=== PATIENT | male | born 1950 | race Caucasian/White ===

== ENCOUNTER 2019-03-18 13:11 | Emergency (ER) | payer MEDICARE, BC, SELFPAY ==
[2019-03-18 13:28] VITALS: BP 131/79; PULSE 97; RESP 16; TEMP 36.9; O2SAT 96
--- NOTE | 2019-03-18 13:44 | W.ED.GENAD ---
Discharge Plan Disposition Patient Disposition: HOME Condition: Improving Discharge Details Chief Complaint: DentalOral Clinical Impression: Oral ulcer Primary Care Provider: None,None ED Provider: Jordin Tucker Home Meds and New Rx's Prescriptions: Continued ibuprofen 800 MG tablet 800 mg PO BID PRNQty: 30 RF: 0 diazepam 10 MG tablet 10 mg PO BID PRNQty: 60 RF: 2 allopurinol 300 MG tablet 300 mg PO DAILY Qty: 90 RF: 0 Discharge Instructions Additional Instructions: May use Magic mouthwash, swish and spit 5 cc up to 4 times daily. Use approximately 5 days time. Follow-up with regular doctor for recheck. Continue regular medications. Return for any acute concern Medical Decision Making 68-year-old male with shallow ulcerations that are fairly discrete and have been bothering him for 2 months times. HPI General Mode of arrival: ambulatory. Date/Time Provider Initiated Documentation: 03/18/19 13:35. Limitations to Documentation: no limitations. Information obtained by: patient. History of Present Illness 68 year old M presents to the emergency department with the chief complaint of Oral sores, described as mild, Quality is described as constant, and is localized to the mouth. Patient reports no radiation. and it has been constant. No relieving factors improve symptom(s), No exacerbating factors reported . Patient did receive the following treatments prior to arrival, none Related Data Home Medications Medication Instructions Recorded Confirmed diazepam 10 mg PO BID PRN #60 tab-cap 06/20/15 03/18/19 ibuprofen 800 mg PO BID PRN #30 tab-cap 06/20/15 03/18/19 allopurinol 300 mg PO DAILY #90 tab-cap 01/26/16 03/18/19 Allergies Allergy/AdvReac Type Severity Reaction Status Date / Time bupropion HCl Allergy Unknown Unverified 03/18/19 13:31 [From Wellbutrin] paroxetine HCl [From Paxil] Allergy Unknown Unverified 03/18/19 13:31 colchicine AdvReac Intermediate Diarrhea Unverified 03/18/19 13:31 morphine sulfate AdvReac CONSTIPATIO Unverified 03/18/19 13:31 [From MS Contin] N General Stated Complaint: DentalOral JAMIE: 3 Review of Systems Review of Systems No fever. No weight loss. Otherwise well. 6 systems reviewed and [facility] Social History Smoking/Tobacco Use Status: Current every day Tobacco Type: cigarettes Drug use: Never Substance use type: does not use Exam Narrative Exam Narrative: GEN: awake, alert, oriented 3. Pleasant, well groomed, interactive. HEAD: Normocephalic, atraumatic ENT: Mucous membranes moist, oropharynx with few shallow ulcerations on the floor of the mouth and right buccal mucosa, no swelling, no purulent discharge, no exudate, External ear exam unremarkable EYES: PERRL, EOMI NECK: Full ROM, no RENA, no menigismus CHEST/RESP: Nontender, clear to auscultation bilateral, no wheeze/rhonchi/rales CARDIOVASCULAR: RRR, no murmur, rub husam. 2+ Rad pulse bilateral EXT: Full ROM, no edema, no rash Neuro: Grossly normal neurologic exam, conversant, interactive. Psych: Speech fluent, thoughts congruent, affect normal Course Vital Signs Temperature 36.9 C 03/18/19 13:28 Pulse 97 H 03/18/19 13:28 Respiratory Rate 16 03/18/19 13:28 Blood Pressure 131/79 03/18/19 13:28 Pulse Oximetry 96 03/18/19 13:28 Temperature 36.9 C 03/18/19 13:28 Temperature Source Skin 03/18/19 13:28 Pulse 97 H 03/18/19 13:28 Respiratory Rate 16 03/18/19 13:28 Respiratory Effort Non-Labored 03/18/19 13:28 Blood Pressure 131/79 03/18/19 13:28 Blood Pressure Position Sitting 03/18/19 13:28 Pulse Oximetry 96 03/18/19 13:28 Oxygen Delivery Method Room Air 03/18/19 13:28 Oxygen Flow Rate 0 03/18/19 13:28 Pain Level 6 03/18/19 13:28
[2019-03-18] MEDS: Magic Mouthwash 119 ML BTL PO (14:00)
== END 2019-03-18 14:12 | disposition home or self-care (01) ==
PROVIDERS: Emergency Provider Emergency Medicine
DX: K12.1 Other forms of stomatitis (principal)
CPT/HCPCS: 99283

== ENCOUNTER 2019-04-24 12:22 | Outpatient (REF) | payer MEDICARE, BC, SELFPAY ==
[2019-04-24 19:13] LABS: ALT 40 U/L (12-78); AST 22 U/L (15-37); Albumin 3.7 g/dL (3.4-5.0); Alkaline Phosphatase 102 U/L (46-116); Anion Gap 7.8 mmol/L (3-11); BUN 6 mg/dL (7-18); Bilirubin, Total 0.5 mg/dL (0.2-1.0); CO2 29.2 mmol/L (21.0-32.0); CREATININE 0.82 mg/dL (0.70-1.30); Calcium 9.3 mg/dL (8.5-10.1); Chloride 103 mmol/L (98-107); Glucose 101 mg/dL (70-100); Potassium 4.7 mmol/L (3.5-5.1); Sodium 140 mmol/L (136-145); Total Protein 7.4 g/dL (6.4-8.2)
[2019-04-24 19:53] LABS: Calculated LDL 127 mg/dL; Cholesterol 195 mg/dL (50-200); HDL Cholesterol 51 mg/dL (40-60); Triglyceride 89 mg/dL (30-150)
== END 2019-04-24 12:42 ==
LOC: LBN 12:22
PROVIDERS: PCP Family Medicine; Visit Provider Family Medicine
DX: Z13.6 Encounter for screening for cardiovascular disorders (principal)
CPT/HCPCS: 80053; 80061; 83721

== ENCOUNTER 2019-08-06 12:56 | Observation (INO) | payer MEDICARE, BC, SELFPAY ==
[2019-08-06 13:03] VITALS: BP 134/83; PULSE 100; RESP 16; TEMP 37; O2SAT 98
--- NOTE | 2019-08-06 13:23 | W.ED.GENAD ---
Discharge Plan Disposition Patient Disposition: [facility] INPATIENT Condition: Stable Discharge Details Chief Complaint: PsychEval Clinical Impression: Depressive disorder Primary Care Provider: Flaco Gerber ED Provider: Kenji Abdul Home Meds and New Rx's Prescriptions: No Action desvenlafaxine 100 mg tablet extended release 24hr 100 mg PO DAILY RF: 0 omeprazole 20 mg capsule,delayed release(DR/EC) 20 mg PO DAILY Qty: 30 RF: 2 Complete Multivitamin Tablet 1 tab PO DAILY RF: 0 bupropion HCl 150 mg tablet extended release 24 hr 150 mg PO QAM Qty: 30 RF: 0 diazepam 10 mg tablet 10 mg PO BID MDD 20 mg PRN (Reason: anxiety) Qty: 56 RF: 0 Medical Decision Making 68 yo male with hx of ptsd and depression comes in with worsening depression over the last few months. Denies any attempts at self harm and has no thoughts of si/hi, but does state if he didn't wake up that it be okay. Does drink alcohol, denies drug use and clinically sober on exam. Has no headaches, fevers, chills, chest pain, sob. Has normal neuro exam, caox4. No findings on history or physical exam to suggest underlying medical process such as infection or endocrine abnormality as cause of his symptoms. Medically cleared to see mental health pt seen by mental health and will be voluntary psych bed placement, labs unremarkable, remains stable no beds today, spoke with Dr. Lazo who accepts for admission Differential Diagnosis Differential Diagnosis: depression, si, bipolar Lab Data Lab results reviewed: Yes I reviewed the patient's lab results. HPI General Mode of arrival: ambulatory. Date/Time Provider Initiated Documentation: 08/06/19 12:57. Limitations to Documentation: no limitations. Information obtained by: patient. History of Present Illness 68 year old M presents to the emergency department with the chief complaint of depression, described as moderate, and it has been constant. No relieving factors improve symptom(s), No exacerbating factors reported . Related Data Home Medications Medication Instructions Recorded Confirmed desvenlafaxine 100 mg 100 mg PO DAILY 04/24/19 08/06/19 tablet,extended release 24 hour omeprazole 20 mg capsule,delayed 20 mg PO DAILY #30 cap 04/24/19 08/06/19 release multivitamin,au-dbco-jqbtevje 1 tab PO DAILY 05/22/19 08/06/19 bupropion HCl 150 mg 24 hr tablet, 150 mg PO QAM #30 tab 07/30/19 08/06/19 extended release diazepam 10 mg tablet 10 mg PO BID PRN #56 tab-cap MDD 07/30/19 08/06/19 20 mg Previous Rx's Medication Instructions Recorded omeprazole 20 mg capsule,delayed 20 mg PO DAILY #30 cap 04/24/19 release bupropion HCl 150 mg 24 hr tablet, 150 mg PO QAM #30 tab 07/30/19 extended release diazepam 10 mg tablet 10 mg PO BID PRN #56 tab-cap MDD 07/30/19 20 mg Allergies Allergy/AdvReac Type Severity Reaction Status Date / Time colchicine AdvReac Intermediate Diarrhea Verified 08/06/19 13:08 morphine sulfate AdvReac CONSTIPATIO Verified 08/06/19 13:08 [From MS Contin] N General Stated Complaint: PsychEval JAMIE: 2 Review of Systems All systems reviewed & are unremarkable except as noted in HPI and below Constitutional Constitutional: Denies chills, Denies fever(s) and Denies weakness ENT Ears, Nose, Mouth, and Throat: Denies change in voice Cardiovascular Cardiovascular: Denies chest pain and Denies dyspnea Respiratory Respiratory: Denies cough and Denies dyspnea Gastrointestinal Gastrointestinal: Denies abdominal pain, Denies nausea and Denies vomiting Musculoskeletal Musculoskeletal: Denies joint swelling Neurologic Neurologic: Denies weakness [facility] Medical History (Updated 05/21/19 @ 15:23 by Diane Berry RN) Alcohol abuse, in remission (Acute 01/06/15) Depressive disorder (Acute 09/16/05) Dr Sigala since 2004; now in [place], venlofexin rx Dysphonia (Acute 10/26/13) Generalized anxiety disorder (Acute 02/12/13) Panic too GERD with esophagitis (Acute) Gout (Acute 06/16/04) h/o multiple attacks, rx with allopurinol 2004 [facility] Grief at loss of child (Acute 01/06/15) Dtr of cancer 10/2014 Hyperlipidemia (Acute 02/12/13) Malignant neoplasm of respiratory tract (Acute 10/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 Sigala; SS Disability 10/2014; Crisis 06/09/14 [place] Sleep apnea (Acute 02/12/13) Tobacco dependence syndrome (Acute 02/12/13) Surgical History (Updated 05/22/19 @ 16:39 by Clementine Patel) History of circumcision (Acute) History of orchiectomy (Acute) 12/17/07 S/P ORIF (open reduction internal fixation) fracture (Acute) femur fx 10/17/03 S/P vasectomy (Acute) Family History (Updated 05/21/19 @ 15:16 by Diane Berry RN) Brother Anxiety Daughter Lymphoma Mother , age 64 Depression Heart disease Brother Alcohol abuse 4 brothers w/ alcoholism 3 brothers of accidents Social History (Updated 07/30/19 @ 13:18 by Edel Munroe LPN) Smoking/Tobacco Use Status: Current every day Tobacco Type: cigarettes Alcohol Intake: current Alcohol Intake frequency: 3 or more drinks per day Alcohol type: beer Details: 2 Drug use: Rarely Substance use type: marijuana Details: No IV Drug Use Adopted: No Caregiver/Support person: No Foster care: No Household members: none Housing: other Details: Rent Number of Children: 1 Communication Needs: None Do you need help understanding health information?: Never current occupation: Retired Sexually active: Yes Do you think of yourself as: straight/heterosexual Current gender identity: male What type of physical activity do you participate in: none Seatbelt use: always Exam Const General: no acute distress Orientation: alert HENMT Head: normal to inspection Ears: external ears normal General nose exam: external nose normal Mouth: moist mucous membranes Eyes General: appearance normal, both eyes and all related structures Neck Neck: normal visual inspection Resp Effort & Inspection: normal respiratory effort and able to speak in complete sentences Cardio Rate: regular rate Skin General skin exam: no rashes or lesions noted Neuro General: alert and oriented x3 Extrem General: normal to inspection Psych Appearance: well kempt Course Vital Signs Vital signs: Vital Signs Temperature 37 C 08/06/19 13:03 Pulse 100 H 08/06/19 13:03 Respiratory Rate 16 08/06/19 13:03 Blood Pressure 134/83 08/06/19 13:03 Pulse Oximetry 98 08/06/19 13:03 Temperature 37 C 08/06/19 13:03 Temperature Source Skin 08/06/19 13:03 Pulse 100 H 08/06/19 13:03 Respiratory Rate 16 08/06/19 13:03 Respiratory Effort Non-Labored 08/06/19 13:15 Blood Pressure 134/83 08/06/19 13:03 Blood Pressure Position Sitting 08/06/19 13:03 Pulse Oximetry 98 08/06/19 13:03 Oxygen Delivery Method Room Air 08/06/19 13:03 Oxygen Flow Rate 0 08/06/19 13:03 Pain Level 8 08/06/19 13:03 Comment 08/06/19 13:03
[2019-08-06 13:34] LABS: Abs Immature Grans 0.01 k/cumm (0.0-0.09); Absolute Basophil Count 0.01 k/cumm (0.0-0.2); Absolute Eosinophil Count 0.07 k/cumm (0.0-0.7); Absolute Lymphocyte Count 1.09 k/cumm (1.2-3.4); Absolute Monocyte Count 0.73 k/cumm (0.11-0.7); Absolute Neutrophil Count 6.63 k/cumm (1.2-6.7); Basophils % 0.1; Eosinophils % 0.8; HGB 15.8 g/dL (13.5-17.5); Immature Grans % 0.1; Lymphocytes % 12.8; Mean Corp. HGB Concentration 35.9 g/dL (32.0-36.0); Mean Corpuscular Hemoglobin 32.5 pg (27.0-33.0); Mean Corpuscular Volume 90.5 fL (80-95); Mean Platelet Volume 9.3 fL (8.0-11.0); Monocytes % 8.5; Neutrophils % 77.7; Platelet Count 198 x1000/uL (130-400); RBC 4.86 m/cumm (4.50-6.00); RBC Distribution Width 12.4 % (11.8-14.1); White Blood Cell Count 8.54 k/cumm (4.4-10.8)
--- NOTE | 2019-08-06 13:38 | NUR.NOTE ---
Nursing Note: mental worker in room at this time
[2019-08-06 13:56] LABS: ALT 38 U/L (16-63); AST 22 U/L (15-37); Albumin 3.8 g/dL (3.4-5.0); Alkaline Phosphatase 74 U/L (46-116); Anion Gap 9.8 mmol/L (3-11); BUN 7 mg/dL (7-18); Bilirubin, Total 0.3 mg/dL (0.2-1.0); CO2 26.2 mmol/L (21.0-32.0); CREATININE 0.76 mg/dL (0.70-1.30); Calcium 9.5 mg/dL (8.5-10.1); Chloride 101 mmol/L (98-107); ETHANOL BLOOD 9.8 mg/dL (<3); Glucose 79 mg/dL (74-106); Sodium 137 mmol/L (136-145); TSH (W/Ref FT4) 1.46 uIU/mL (0.36-3.74); Total Protein 7.7 g/dL (6.4-8.2)
--- NOTE | 2019-08-06 14:14 | PDOC.MHCN_ITS ---
Mental Health Crisis Note Presenting Issue How did you arrive at the ED and why did you come: You came to ED because he was suffering from severe depression. Precipitating Factors You has active SI with no intent but he is shutting down enough where he has no energy to prepare meals and often goes without eating. He staying in bed continually. He has become extremely socially isolated. The clt has suffered many personal loses his mother and three brother. One of his brother shot himself in the head. Four years ago his daughter of cancer. The daughter did give to his only grandchild before she passed on. The clt said he almost lost his son to drug abuse who is now in rehab. The clt feels that he should be there for him and feels guilt that he can't given his present condition. A therapist in [place] recommended ECT. I strongly feel the clt's dep ression warrants inpatient. 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 The clt has severe secondary PTSD along with the severe depression. Disposition BEHAVIOR: Cooperative EYE CONTACT: Eye contact was good. MOOD: Somber and eyes were tearful. AFFECT: Sad and dejected APPETITE: barely eats SLEEP(trouble falling/staying asleep: excessive sleep Plan The plan is to have you go to an inpatient unit as a voluntary pt. The receptive for treatment and currently feels his present medications are not helping.
[2019-08-06 14:57] LABS: Salicylate 5.6 mg/dL (2.8-20.0)
[2019-08-06 15:05] LABS: Acetaminophen < 2 ug/mL (10-30)
[2019-08-06 15:56] LABS: Bilirubin Negative (Negative); Blood Negative (Negative); Clarity Clear (Clear); Glucose Negative (Negative); Ketones Trace mg/dL (Negative); Leukocyte Esterase Negative (Negative); Nitrite Negative (Negative); Urobilinogen 0.2 EU/dL (Up TO 0.2)
[2019-08-06 16:07] LABS: *AMPHETAMINES SCREEN URINE Negative (Negative); *BARBITURATES SCREEN URINE Negative (Negative); *BENZODIAZEPINES SCREEN URINE POSITIVE (Negative); Cannabinoids THC Negative (Negative); Cocaine Screen,Urine Negative (Negative); METHADONE URINE SCREEN Negative (Negative); OPIATES URINE SCREEN Negative (Negative)
[2019-08-06 16:08] LABS: Tricyclic Antidepressants Negative (Negative)
[2019-08-06] MEDS: diazePAM 5 MG TAB (17:38)
--- NOTE | 2019-08-06 17:48 | CMSP_ITS ---
- If Service Date Differs Date of service: 08/06/19 Time of Service: 15:30 Care Management Safety Plan CM met with Steven at the bedside he is alert and engaged he states he has been depressed and feels that he needs hospitalization for treatment. Steven in voluntary for inpatient treatment at psychiatric facility. VOLUNTARY FOR INPATIENT PSYCHIATRIC STABILIZATION. Patient is appropriate in all interactions since arriving at [facility]; Pt has demonstrated appropriate coping and communication skills, has articulated his or her needs and concerns and is fully engaged during staff interactions. Safety plan has been established with patient, and care team, to adhere to patient goals, identify restrictions based on behavioral status, address nutrition, and determine allowed personal belongings, tools for hygiene and personal care. Determine level of activity including ambulation, level of supervision, visitors, and determine privileges based on behaviors and level of engagement by pt. Huddle with Reyna JUNIOR, [facility], HONORIO Pedersen shirt ironer supervisor and this auto service writer. CM also reviewed the plan with SAFETY PLAN: 1. Will remain on suicide precautions. In Paper Clothes 2. Will remain in room under direct supervision of one-on-one staff at all times provided by [employer]; [employer], [employer] rafter cutting machine operator. 3. May have paper cups, plates, finger foods as well as a metal spoon with which to eat meals. [facility] staff will be responsible for accounting of utensils after meals. 4. Follow [facility] Management of the Admitted Behavioral Health Patient policy. 5. Comfort bath system or shower with supervision 6. No personal belongings 7. Visitors-Suzan Louisa, ex-spouse and friend 8. Activities: coloring, television if available 9. Bathroom privileges, and shower with supervision 10. Phone: At the discretion of the primary care team 11. Due to VOLUNTARY status, if patient wishes to leave [facility], the [facility] aboriginal education worker coordinator must be contacted to re-evaluate patient prior to patient exiting the building. Patient is currently voluntarily at [facility] and seeking inpatient admission when a bed becomes available. [facility] [employer] will continue seeking placement. Please contact the Car Supervisor Remelt Furnace Expediter ([phone]) and [facility] [employer] ([phone]) for any needed changes in the Safety Plan. Safety plan has been provided to interdepartmental care team. Referrals have been sent to all psychiatric facilities in [place] he would prefer to avoid [facility] or [facility] if possible. CM updated his friend Suzan and he request when he is being discharged she be updated. Steven will be transported via [employer] at time of disc harge.
--- NOTE | 2019-08-06 18:01 | NUR.NOTE ---
pt belongings include jacket, duffle bag, shoes, shirt, pants. items sent with pt on transfer to rm 230. Nursing Note:
[2019-08-06 18:10] VITALS: BP 118/74; PULSE 80; RESP 16; TEMP 36.6; O2SAT 97
--- NOTE | 2019-08-06 23:04 | W.PM.HP.N ---
Date of service: 08/06/19 Time of Service: 23:04 Assessment and Plan Assessment and plan (1) Depressive disorder: Status: Acute Assessment and plan: Admitted to [facility] on observation status pending transfer to inpatient psychiatric facility. Continue his desvenlafaxine and increase his Wellbutrin dose. Patient is admitted under voluntary admission. He has indicated to me that if he is unable to be transferred to inpatient psychiatry facility and be seen by a psychiatrist then he would prefer to be discharged home. He indicated to me that he has no intention of committing suicide and that there are no weapons in the home. He admits to feelings of depression but that he would not want to leave a legacy of suicide on his remaining son like his brother did to the patient's nephew. (2) PTSD (post-traumatic stress disorder): Status: Acute Assessment and plan: As above (3) Generalized anxiety disorder: Status: Acute Assessment and plan: Continue medications as above as well as use of Valium as needed acute anxiety attacks. History of Present Illness History of Present Illness Chief Complaint: Depression Narrative: 68-year-old male with a history of PTSD and depression comes in with worsening symptoms of depression over the last several months. He denies a symptoms of self-harm or thoughts plan suicidal ideation or homicidal ideation but admits to feelings of worthlessness and stated to Dr. Kenji Abdul, emergency room attending, that it would be okay if he did not wake up. Patient denies illicit drug use but admits to drinking a couple beers a day. He previously drank 6-12 beers a day. He recently saw his primary care provider Dr. Flaco Gerber on July 30, 2019. At that time bupropion 150 mg was added to his regimen. He was already on desvenlafaxine 100 mg daily. He is been in counseling weekly with Louann Irwin. Patient has been under increased stress because of his son's drug addiction with heroin and the patient has already lost a daughter to cancer and is worried about losing his son to drug addiction. Patient was medically cleared in the emergency department by Dr. Kenji Abdul who did an examination as well as diagnostic work-up including routine labs including a CBC CMP, TSH, urinalysis, drug screen which was only positive for benzodiazepines however the patient has been prescribed Valium for anxiety. His blood alcohol level is 9.8 milligrams per deciliter consistent with his history of 1-2 beers a day. Patient is admitted overnight at [facility] on a voluntary basis awaiting transfer to an inpatient psychiatric facility for treatment of his depression and PTSD. Review of Systems Psychiatric Psychiatric: Reports anxiety, Reports depression, Reports difficulty concentrating, Reports hopelessness, Reports irritability, Reports mood swings, Denies hallucinations, Denies homicidal ideation and Denies suicidal ideation (no plans for committing suicide) [facility] Medical History Alcohol abuse, in remission (Acute 01/06/15) Depressive disorder (Acute 09/16/05) Dr Sigala since 2004; now in [place], venlofexin rx Dysphonia (Acute 10/26/13) Generalized anxiety disorder (Acute 02/12/13) Panic too GERD with esophagitis (Acute) Gout (Acute 06/16/04) h/o multiple attacks, rx with allopurinol 2004 [facility] and [facility] Grief at loss of child (Acute 01/06/15) Dtr of cancer 10/2014 Hyperlipidemia (Acute 02/12/13) Malignant neoplasm of respiratory tract (Acute 10/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 Sigala; SS Disability 10/2014; Crisis 06/09/14 [place] Sleep apnea (Acute 02/12/13) Tobacco dependence syndrome (Acute 02/12/13) Surgical History History of circumcision (Acute) History of orchiectomy (Acute) 12/17/07 S/P ORIF (open reduction internal fixation) fracture (Acute) femur fx 10/17/03 S/P vasectomy (Acute) Family History Brother Anxiety Daughter Lymphoma Mother , age 64 Depression Heart disease Brother Alcohol abuse 4 brothers w/ alcoholism 3 brothers of accidents Social History Smoking/Tobacco Use Status: Current every day Tobacco Type: cigarettes Alcohol Intake: current Alcohol Intake frequency: 3 or more drinks per day Alcohol type: beer Details: 2 Drug use: Rarely Substance use type: marijuana Details: No IV Drug Use Adopted: No Caregiver/Support person: No Foster care: No Household members: none Housing: other Details: Rent Number of Children: 1 Communication Needs: None Do you need help understanding health information?: Never current occupation: Retired Sexually active: Yes Do you think of yourself as: straight/heterosexual Current gender identity: male What type of physical activity do you participate in: none Seatbelt use: always Meds Home Medications and Allergies Home Medications Medication Instructions Recorded Confirmed Type desvenlafaxine 100 mg 100 mg PO DAILY 04/24/19 08/06/19 History tablet,extended release 24 hour omeprazole 20 mg capsule,delayed 20 mg PO DAILY #30 cap 04/24/19 08/06/19 Rx release multivitamin,gd-[id number] 1 tab PO DAILY 05/22/19 08/06/19 History bupropion HCl 150 mg 24 hr tablet, 150 mg PO QAM #30 tab 07/30/19 08/06/19 Rx extended release diazepam 10 mg tablet 10 mg PO BID PRN #56 tab-cap MDD 07/30/19 08/06/19 Rx 20 mg Allergies Allergy/AdvReac Type Severity Reaction Status Date / Time colchicine AdvReac Intermediate Diarrhea Verified 08/06/19 13:08 morphine sulfate AdvReac CONSTIPATIO Verified 08/06/19 13:08 [From MS Ruthie] N Exam Narrative Exam Narrative: Exam was deferred until the morning of August 07, 2019 as the patient was asleep when I came to examine him and interview him. Const General: cooperative, no acute distress and well groomed Nutritional Appearance: average body habitus and well nourished Orientation: alert, awake and oriented x3 HENMT Head: normal to inspection, no palpable skull fracture, normocephalic and atraumatic Mouth: oral mucosae normal, lip normal, tongue normal, oropharynx normal and moist mucous membranes Teeth and gingiva: dentition normal Throat: posterior oropharynx normal and uvula midline Eyes General: appearance normal, both eyes and all related structures Visual Elena: normal visual elena by confrontation Alignment and Position: alignment normal Periorbital: periorbital findings normal Eyelids: eyelids normal Conjunctivae: conjunctivae normal Sclera: sclerae normal Cornea: corneas normal Pupils: PERRL, normal by confrontation and accommodation normal EOM: EOM intact bilaterally Neck Neck: normal visual inspection, full ROM, no lymphadenopathy, trachea midline and supple Thyroid: thyroid normal Carotids: normal carotid upstroke Lymphatic: no lymphadenopathy noted Chest Chest: normal inspection of the chest and normal palpation of entire chest wall Resp Effort & Inspection: normal respiratory effort and able to speak in complete sentences Auscultation: clear to auscultation bilaterally Percussion: percussion normal Cardio Jugular venous pressure: no JVD Palpation: normal PMI Rate: regular rate Rhythm: regular rhythm Heart Sounds: S1 normal, S2 normal and normal, physiologic split S2 Pulses: normal peripheral pulses GI Inspection: normal to inspection Palpation: soft, no hepatosplenomegaly and nontender Percussion: normal to percussion Auscultation: normal bowel sounds Back/Spine/Pelvis Back: no CVA tenderness Cervical Spine: normal cervical lordosis and cervical ROM normal Thoracic/Lumbar Spine: thoracic and lumbar spine normal to inspection and thoraco-lumbar ROM normal Skin General skin exam: no rashes or lesions noted, elasticity normal and turgor normal Lesions: no lesions Rashes: no rashes Trauma: no lacerations or abrasions Hair: normal Nails: normal Neuro General: alert, awake, oriented x3, moves all extremities and no focal motor deficits Cranial Nerves: CN's II-XI intact bilaterally, PERRL, accommodation normal, EOM intact bilaterally, no nystagmus, facial strength normal, tongue midline, able to rotate head bilaterally, able to elevate shoulders bilaterally and Symmetric palate elevation Cognition: normal cognition Speech: speech normal Gait: normal gait Motor: muscle tone normal throughout, strength 5/5 throughout, no pronator drift, no movement abnormalities noted and no fasciculations Sensory Exam: no sensory deficits noted Extrem General: normal to inspection, full ROM, normal capillary refill, no joint enlargement, no clubbing, cyanosis or edema and no calf tenderness bilaterally Psych Appearance: grossly normal Mental Status: mental status grossly normal Speech and Movement: speech and movement normal Mood: congruent mood Affect: sad (tearful when relating to me his son's addiction and his daughter's ) Attitude: cooperative Thought Process: normal Thought Content: normal Insight: insight good Judgment: judgment good Results Labs Result diagrams: 08/06/19 13:27 08/06/19 13:27 Labs: Laboratory Results - last 24 hr 08/06/19 08/06/19 08/06/19 13:27 13:27 13:27 WBC 8.54 RBC 4.86 Hgb 15.8 Hct 44.0 MCV 90.5 MCH 32.5 MCHC 35.9 RDW 12.4 Plt Count 198 MPV 9.3 Immature Gran % 0.1 Neutrophils % 77.7 Lymphocytes % 12.8 Monocytes % 8.5 Eosinophils % 0.8 Basophils % 0.1 Absolute Neutrophils 6.63 Absolute Lymphocytes 1.09 L Absolute Monocytes 0.73 H Absolute Eosinophils 0.07 Absolute Basophils 0.01 Sodium 137 Potassium 4.0 Chloride 101 Carbon Dioxide 26.2 Anion Gap 9.8 BUN 7 Creatinine 0.76 Estimated GFR/1.73 m2 >= 60.00 Glucose 79 Calcium 9.5 Total Bilirubin 0.3 AST 22 ALT 38 Alkaline Phosphatase 74 Total Protein 7.7 Albumin 3.8 TSH 1.46 Urine Color Urine Clarity Urine pH Ur Specific [place] Urine Protein Urine Ketones Urine Blood Urine Nitrite Urine Bilirubin Urine Urobilinogen Ur Leukocyte Esterase Urine Glucose Salicylates 5.6 Urine Opiates Screen Urine Methadone Screen Acetaminophen < 2 L Ur Barbiturates Screen Ur Tricyclics Screen Ur Amphetamines Screen U Benzodiazepines Scrn Urine Cocaine Screen Ur THC Screen Ethyl Alcohol 9.8 08/06/19 08/06/19 14:38 14:38 WBC RBC Hgb Hct MCV MCH MCHC RDW Plt Count MPV Immature Gran % Neutrophils % Lymphocytes % Monocytes % Eosinophils % Basophils % Absolute Neutrophils Absolute Lymphocytes Absolute Monocytes Absolute Eosinophils Absolute Basophils Sodium Potassium Chloride Carbon Dioxide Anion Gap BUN Creatinine Estimated GFR/1.73 m2 Glucose Calcium Total Bilirubin AST ALT Alkaline Phosphatase Total Protein Albumin TSH Urine Color Yellow Urine Clarity Clear Urine pH 6.0 Ur Specific [place] 1.020 Urine Protein Negative Urine Ketones Trace H Urine Blood Negative Urine Nitrite Negative Urine Bilirubin Negative Urine Urobilinogen 0.2 Ur Leukocyte Esterase Negative Urine Glucose Negative Salicylates Urine Opiates Screen Negative Urine Methadone Screen Negative Acetaminophen Ur Barbiturates Screen Negative Ur Tricyclics Screen Negative Ur Amphetamines Screen Negative U Benzodiazepines Scrn Positive A Urine Cocaine Screen Negative Ur THC Screen Negative Ethyl Alcohol Last Vital Signs Temp 36.6 C 08/06/19 18:10 Pulse 80 08/06/19 18:10 Resp 16 08/06/19 18:10 BP 118/74 11/21/19 18:10 Pulse Ox 97 08/06/19 18:10
[2019-08-06 23:11] VITALS: BP 118/74; PULSE 80; RESP 16; TEMP 36.6; O2SAT 97
--- NOTE | 2019-08-06 23:50 | NUR.NOTE ---
Nursing Note: Pt is sleeping, until this time. one cup of H2O that was given during admission was not touched. New order received of pt is on CIWA and can have nicotine patch if needed. PCSO on the sight instructed to notify RN as soon as pt is awake. Continue to monitor.
[2019-08-07] MEDS: Nicotine 21 MG/24 HR PATCH TD (00:39)
[2019-08-07] MEDS: Acetaminophen 325 MG TAB PO ×2 (04:00→17:37)
[2019-08-07 07:58] VITALS: BP 125/77; PULSE 87; RESP 18; TEMP 37.1; O2SAT 100
[2019-08-07] MEDS: buPROPion-XL 150 MG TABCR 300 MG PO (08:34)
[2019-08-07] MEDS: Multivitamin w/Minerals TAB 1 TAB PO (08:34)
[2019-08-07] MEDS: Omeprazole 20 MG CAPCR PO (08:34)
[2019-08-07] MEDS: diazePAM 5 MG TAB 10 MG PO ×3 (08:34→17:37)
--- NOTE | 2019-08-07 11:33 | PDOC.MHCN ---
Mental Health Crisis Note Presenting Issue How did you arrive at the ED and why did you come: You came in because of SI and severe depression. The clt was isolating and having issues with excessive with lethargy. You has not been eating because he does no have enough energy to prepare meals. Precipitating Factors Clnick is receptive for treatment. You endorses that he has been isolating and not having enough energy to prepare meals to eat. The clt said that all his window shades are down. He says all he does is stay in bed. 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 You has sustained several losses including his mother and his three brothers. One of the brothers suicided. He lost his daughter due to cancer 4 yrs ago. Disposition BEHAVIOR: You is cooperative. EYE CONTACT: eye contact is good. MOOD: Pleasant but somber AFFECT: Sad affect. APPETITE: Appetite has been poor. SLEEP(trouble falling/staying asleep: He has been sleeping excessively. Plan You is staying at [facility] pending placement as a voluntary admission.
--- NOTE | 2019-08-07 13:56 | NUR.NOTE ---
Nursing Note: 1316: spoke with Shakila in admissions about pt admission. Shakila states that the doc to doc still needs to occur. Jerman MCCABE will call [facility] for doc to doc. pt updated to current plan.
[2019-08-07 15:00] VITALS: BP 120/78; PULSE 76; RESP 18; TEMP 36.6; O2SAT 100
--- NOTE | 2019-08-07 16:16 | W.PM.DS.N ---
Date of service: 08/07/19 Time of Service: 16:16 DS: Diagnosis Discharge Diagnosis (1) Depressive disorder: Status: Acute (2) PTSD (post-traumatic stress disorder): Status: Acute (3) Generalized anxiety disorder: Status: Acute Discharge Plan Disposition Patient Disposition: [facility] Condition: Stable Discharge Details Chief Complaint: PsychEval Clinical Impression: Depressive disorder Reason For Visit: DEPRESSION Admit Date/Time: 08/06/19 17:23 Admit Provider: Den Lazo Attending Provider: Den Lazo Primary Care Provider: Flaco Gerber ED Provider: Kenji Abdul Hospital Course Hospital Course: Steven Norris is a very pleasant 68 year old man with a past medical history significant for PTSD, depression, anxiety, Alcohol abuse (currently states he drinks 1-2 alcoholic beverages daily), GERD, and 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 Please note, there was a diagnosis of malignant neoplasm of the respiratory tract on his chart that was removed as he denies any history of cancer. He presented to the ED yesterday, on 08/06/19, with reports of worsening symptoms of depression over the last several months. He has had multiple life stressors over the last several years including the loss of his daughter to cancer, and nearly losing his son recently to a heroin overdose. He presented to the ED because his depression had become unbearable. He saw his PCP recently who made adjustments to his medications. He has been sleeping excessively. He frequently has thoughts of suicide. He does not currently have a plan to end his life, he feels safe at the hospital. His ex-, and friend, is very concerned about him going home. He has been medically cleared. Mental health was consulted. He was accepted to [facility] and will transfer via ambulance today. Home Meds and New Rx's Prescriptions: New nicotine 21 mg/24 hr Patch 24 Hour 21 mg transdermal DAILY PRN PRNQty: 0 RF: 0 Continued desvenlafaxine 100 mg tablet extended release 24hr 100 mg PO DAILY RF: 0 omeprazole 20 mg capsule,delayed release(DR/EC) 20 mg PO DAILY Qty: 30 RF: 2 Complete Multivitamin Tablet 1 tab PO DAILY RF: 0 bupropion HCl 150 mg tablet extended release 24 hr 150 mg PO QAM Qty: 30 RF: 0 diazepam 10 mg tablet 10 mg PO BID MDD 20 mg PRN (Reason: anxiety) Qty: 56 RF: 0 Discharge Instructions Instructions: Suicide Prevention for Adults (DC) Activity:: Activity as Tolerated Equipment/Supplies:: No Equipment Needed Diet:: As Tolerated Discharge Orders Discharge Orders: Discharge Order (Routine); Ordered 08/07/19 Ordered By: Lisy Vargas DS: Summary Status at Discharge Functional status at discharge: independent ambulation Overall status at discharge: patient is not back to baseline Mental Status: other (Depressed with suicidal thoughts.) Speech and Movement: speech and movement normal Mood: other (Depressed with suicidal thoughts.) Affect: blunted Exam Narrative Exam Narrative: General: 68 year old man, laying in bed, in NAD. Alert and oriented, pleasant and cooperative. Psychiatric: Depressed affect. HEENT: Normocephalic, atraumatic, pupils symmetrical and round, EOMI, mucous membranes moist. Neck: Supple, no JVD. Cardiovascular: Heart has regular rate and rhythm, no murmur appreciated. Respiratory: Respirations appear even and unlabored, lung sounds clear to auscultation bilaterally. GI: Normoactive bowel sounds x4 quadrants, abdomen soft, nontender on palpation, no masses appreciated. Extremities: Well-perfused, no clubbing, cyanosis or edema. Psych Mental Status: other (Depressed with suicidal thoughts.) Speech and Movement: speech and movement normal Mood: other (Depressed with suicidal thoughts.) Affect: blunted DS: Data Vitals/I&O Vitals and I&O: Vital Signs Temperature 37.1 C 08/07/19 07:58 Temperature Source Skin 08/07/19 07:58 Pulse 87 08/07/19 07:58 Pulse Rhythm Regular 08/07/19 08:15 Respiratory Rate 18 08/07/19 07:58 Respiratory Effort Non-Labored 08/07/19 08:15 Respiratory Depth Normal 08/07/19 08:15 Respiratory Pattern Normal 08/07/19 08:15 Blood Pressure 125/77 08/07/19 07:58 Blood Pressure Position Sitting 08/06/19 13:03 Pulse Oximetry 100 08/07/19 07:58 Oxygen Delivery Method Room Air 08/07/19 07:58 Oxygen Flow Rate 0 08/07/19 07:58 Pain Level 8 08/07/19 14:01 Comment 08/06/19 13:03 Intake & Output 08/06/19 08/07/19 08/07/19 23:59 11:59 23:59 Intake Total 540 / 540 Balance 540 / 540 Weight 68.9 kg Intake: Oral 540 / 540 Other: Comment up to the bathroom independently pt voiding ad elizabeth in toilet Voiding Methods Toilet Toilet [facility] Medical History Alcohol abuse, in remission (Acute 01/06/15) Depressive disorder (Acute 09/16/05) Dr Sigala since 2004; now in [place], venlofexin rx Dysphonia (Acute 10/26/13) Generalized anxiety disorder (Acute 02/12/13) Panic too GERD with esophagitis (Acute) Gout (Acute 06/16/04) h/o multiple attacks, rx with allopurinol 2004 [facility] and [facility] Grief at loss of child (Acute 01/06/15) Dtr of cancer 10/2014 Hyperlipidemia (Acute 02/12/13) Malignant neoplasm of respiratory tract (Acute 10/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 Sigala; SS Disability 10/2014; Crisis 06/09/14 [place] Sleep apnea (Acute 02/12/13) Tobacco dependence syndrome (Acute 02/12/13) Surgical History History of circumcision (Acute) History of orchiectomy (Acute) 12/17/07 S/P ORIF (open reduction internal fixation) fracture (Acute) femur fx 10/17/03 S/P vasectomy (Acute) Family History Brother Anxiety Daughter Lymphoma Mother , age 64 Depression Heart disease Brother Alcohol abuse 4 brothers w/ alcoholism 3 brothers of accidents Social History Smoking/Tobacco Use Status: Current every day Tobacco Type: cigarettes Alcohol Intake: current Alcohol Intake frequency: 3 or more drinks per day Alcohol type: beer Details: 2 Drug use: Rarely Substance use type: marijuana Details: No IV Drug Use Adopted: No Caregiver/Support person: No Foster care: No Household members: none Housing: other Details: Rent Number of Children: 1 Communication Needs: None Do you need help understanding health information?: Never current occupation: Retired Sexually active: Yes Do you think of yourself as: straight/heterosexual Current gender identity: male What type of physical activity do you participate in: none Seatbelt use: always
--- NOTE | 2019-08-07 17:20 | CMDISCH_ITS ---
- If Service Date Differs Date of service: 08/07/19 Time of Service: 17:21 LACE Index Scoring Tool - Questions: Length of Stay (in days): 2 Acuity (Admit via E.D.?): Yes E.D. Visits: 2 - Answers: Total Score: 7 Risk of Readmission: Low Risk Care Management Discharge Reason for Hospitalization: depression Discharge Plan: Steven will transport via ambulance to [facility] for inpatient psychiatric stabilization. He is agreeable to the plan and eager to seek treatment. Patient/Family Education Needs: Review discharge instructions and expectations for treatment at [facility], discussion of self care including Ask Me Three Services Needed at Discharge: Psychiatric Facility ([facility]), Transportation ([facility]) - MH Services (Omit if N/A) Current MH Services: Psychiatric Inp ([facility])
== END 2019-08-07 17:35 | disposition short-term general hospital (02) ==
LOC: ER 17:43 → MS 18:02
PROVIDERS: Admitting Provider Internal Medicine; Emergency Provider Emergency Medicine; PCP Family Medicine; Visit Provider Internal Medicine
DX: F32.9 Major depressive disorder, single episode, unspecified (principal); F43.10 Post-traumatic stress disorder, unspecified; F41.1 Generalized anxiety disorder; K21.9 Gastro-esophageal reflux disease without esophagitis; Z63.4 Disappearance and death of family member; Z63.79 Other stressful life events affecting family and household; F17.210 Nicotine dependence, cigarettes, uncomplicated; Z75.1 Person awaiting admission to adequate facility elsewhere; F10.10 Alcohol abuse, uncomplicated
CPT/HCPCS: 36415; 80053; 80307; 99219; 99239; 99285; 80320; 80329; 81003; 84443; 85025; 99217; 99284; G0378

== ENCOUNTER 2020-03-06 12:57 | Emergency (ER) | payer MEDICARE, BC, SELFPAY ==
[2020-03-06 13:02] VITALS: PULSE 97; RESP 16; TEMP 36.6; O2SAT 97
[2020-03-06 13:17] VITALS: RESP 18
--- NOTE | 2020-03-06 13:30 | DI.RAD_ITS ---
EXAM: XR KNEE RT 3V AP,LAT,ILENE CLINICAL HISTORY: Effusion, pain. TECHNIQUE: 2D digital imaging was performed. COMPARISON: No exams were available for comparison FINDINGS: BONES: No acute fracture is present. No bony destructive lesion is seen. The distal aspect of an intr amedullary sylvia is seen in the femur. There is a healed distal femoral fracture. JOINTS: The knee is normally aligned. There is a small suprapatellar joint effusion. Mild degenerati ve changes are seen in the knee. SOFT TISSUE: Vascular calcifications are present in the soft tissues. IMPRESSION: No acute abnormality. DATA REPOSITORY: RADIATION DOSE DELIVERED:
--- NOTE | 2020-03-06 13:44 | ED.GENADUL_ITS ---
Discharge Plan Disposition Patient Disposition: HOME Condition: Serious Discharge Details Chief Complaint: Vascular Clinical Impression: Effusion of right knee Primary Care Provider: Flaco Gerber ED Provider: Glenroy Alvarado Home Meds and New Rx's Prescriptions: Continued desvenlafaxine 100 mg tablet extended release 24hr 100 mg PO DAILY RF: 0 Complete Multivitamin Tablet 1 tab PO DAILY RF: 0 aripiprazole [Abilify] 5 mg tablet 10 mg PO DAILY RF: 0 indomethacin 50 mg capsule 50 mg PO TID PRN (Reason: gout) Qty: 30 RF: 6 allopurinol 300 mg tablet 300 mg PO DAILY Qty: 90 RF: 3 diazepam 10 mg tablet 10 mg PO DAILY MDD 10 mg Qty: 28 RF: 0 omeprazole 20 mg capsule,delayed release(DR/EC) 20 mg PO DAILY Qty: 90 RF: 3 tamsulosin 0.4 mg capsule 0.4 mg PO QHS Qty: 90 RF: 3 gabapentin 300 mg capsule 300 mg PO TID RF: 0 No Action diazepam 10 mg tablet 10 mg PO DAILY MDD 10 mg Qty: 28 RF: 0 Discharge Instructions Instructions: Swollen Knee Joint (ED) Additional Instructions: Please contact your primary care physician to arrange follow-up. Please contact orthopedics to arrange follow-up. Return to the ER for any worsening or new concerning symptoms. Referrals: Jordin Martins MD [ [facility] STAFF PHYSICIAN] - Flaco Gerber DO [Primary Care Provider] - Discharge Data Discharge Date/Time-TO BE ENTERED AT DEPARTURE: 03/06/20 16:07 Medical Decision Making 69-year-old male with history of gout here with atraumatic right knee effusion persistent over the past 3 to 4 days. Patient has discomfort in posterior knee and proximal calf. X-ray of the right knee was reviewed and interpreted by me: Knee effusion present, prior hardware from femur sylvia intact. Consider inflammatory gout arthritis versus septic arthritis. I called and spoke with Dr. Martins about presentation regarding prior hardware, he noted no contraindication to arthrocentesis and recommended that if fluid nonpurulent to inject Marcaine 2% 10 mL and Depo-Medrol 80 mg after arthrocentesis. Arthrocentesis performed by me after patient provided verbal informed consent. Greater than 40 cc of nonpurulent yellow fluid aspirated. Knee injected with Marcaine and Depo-Medrol. Patient tolerated procedure well without complication. Sterile dressing was applied. 1600??patient does not wish to wait for results. He desires that I contact him with results. He understands that diagnostic work-up is not yet complete and that if results are concerning for septic arthritis he would need to return to the emergency department. Patient verbalized understanding. I did encourage him to follow-up with orthopedics. Usual and customary discharge instructions were provided. 2012 --I called patient and reviewed results with him. Patient has 25,000 WBCs with 95% PMNs, positive urate crystals. Patient noted his knee was feeling better after Marcaine/steroid injection. I encouraged him to call orthopedics in follow-up tomorrow. He is aware culture is pending. HPI General Mode of arrival: ambulatory . Date/Time Provider Initiated Documentation: 03/06/20 13:16 . Limitations to Documentation: no limitations . Information obtained by: patient . HPI Narrative: 69-year-old male with history of gout presents with chief complaint of right leg discomfort. Patient notes 3 to 4 days of persistent right posterior knee discomfort is now involving his posterior calf. Area feels tender. Pain is moderate. Worse with bending his knee. He has associated swelling of the knee. Patient does note he has a history of gout. This does not feel like a typical gout flare. He does not recall any specific trauma. No associated fever. No history of blood clots. Related Data Home Medications Medication Instructions Recorded Confirmed desvenlafaxine 100 mg 100 mg PO DAILY 04/24/19 03/06/20 tablet,extended release 24 hour multivitamin,[id number] 1 tab PO DAILY 05/22/19 03/06/20 aripiprazole 5 mg tablet 10 mg PO DAILY tab 09/29/19 03/06/20 allopurinol 300 mg tablet 300 mg PO DAILY #90 tab 10/27/19 03/06/20 indomethacin 50 mg capsule 50 mg PO TID PRN #30 cap 10/27/19 03/06/20 tamsulosin 0.4 mg capsule 0.4 mg PO QHS #90 cap 11/10/19 03/06/20 gabapentin 300 mg capsule 300 mg PO TID cap 11/18/19 03/06/20 diazepam 10 mg tablet 10 mg PO DAILY #28 tab MDD 10 mg 02/04/20 02/04/20 diazepam 10 mg tablet 10 mg PO DAILY #28 tab-cap MDD 10 02/04/20 03/06/20 mg omeprazole 20 mg capsule,delayed 20 mg PO DAILY #90 cap 02/04/20 03/06/20 release Previous Rx's Medication Instructions Recorded allopurinol 300 mg tablet 300 mg PO DAILY #90 tab 10/27/19 indomethacin 50 mg capsule 50 mg PO TID PRN #30 cap 10/27/19 tamsulosin 0.4 mg capsule 0.4 mg PO QHS #90 cap 11/10/19 diazepam 10 mg tablet 10 mg PO DAILY #28 tab MDD 10 mg 02/04/20 diazepam 10 mg tablet 10 mg PO DAILY #28 tab-cap MDD 10 02/04/20 mg omeprazole 20 mg capsule,delayed 20 mg PO DAILY #90 cap 02/04/20 release Allergies Allergy/AdvReac Type Severity Reaction Status Date / Time bupropion AdvReac Intermediate jittery Verified 03/06/20 13:06 colchicine AdvReac Intermediate Diarrhea Verified 03/06/20 13:06 morphine sulfate AdvReac CONSTIPATIO Verified 03/06/20 13:06 [From MS Contin] N paroxetine AdvReac Verified 03/06/20 13:06 General Stated Complaint: Vascular JAMIE: 3 Review of Systems Constitutional Constitutional: Denies fever(s) Musculoskeletal Musculoskeletal: Reports as per [facility] Medical History Alcohol abuse, in remission (Acute 01/06/15) Depressive disorder (Chronic 09/16/05) Dr Sigala since 2004; now in [place], venlofexin rx Dysphonia (Acute 10/26/13) Former smoker (Chronic) Quit 09/03 Generalized anxiety disorder (Acute 02/12/13) Panic too GERD with esophagitis (Acute) Gout (Acute 06/16/04) h/o multiple attacks, rx with allopurinol 2004 [facility] Grief at loss of child (Acute 01/06/15) Dtr of cancer 10/2014 Hyperlipidemia (Acute 02/12/13) Pharyngoesophageal dysphagia (Acute) PTSD (post-traumatic stress disorder) (Acute 05/03/14) secondary [place] Dr. Sigala; SS Disability 10/2014; Crisis 06/09/14 [place] Sleep apnea (Acute 02/12/13) Tobacco dependence syndrome (Resolved 02/12/13) Surgical History History of circumcision (Acute) History of orchiectomy (Acute) 12/17/07 S/P ORIF (open reduction internal fixation) fracture (Acute) femur fx 10/17/03 S/P vasectomy (Acute) Family History Brother Anxiety Daughter Lymphoma Mother , age 64 Depression Heart disease Brother Alcohol abuse 4 brothers w/ alcoholism 3 brothers of accidents Social History Smoking/Tobacco Use Status: Current every day Tobacco Type: cigarettes Alcohol Intake: former Details: 2 Drug use: Current Sobriety Substance use type: marijuana Details: No IV Drug Use Adopted: No Caregiver/Support person: No Foster care: No Household members: none Housing: other Details: Rent Number of Children: 1 Communication Needs: None Do you need help understanding health information?: Never current occupation: Retired Sexually active: Yes Do you think of yourself as: straight/heterosexual Current gender identity: male What type of physical activity do you participate in: none Seatbelt use: always Do you feel safe at home: Yes Do you feel safe in your relationship?: Yes Exam Const General: cooperative and no acute distress HENMT Mouth: moist mucous membranes Eyes Conjunctivae: normal conjunctivae Sclera: normal sclerae Neck Neck: trachea midline and supple Cardio Rate: regular rate and not tachycardic Rhythm: regular rhythm Pulses: dorsalis pedis present on the right 2+ Skin General skin exam: no rashes or lesions noted Neuro General: patient alert, patient awake and tone normal Extrem General: no edema Right lower extremity: knee Details: swelling and knee ligament exam normal; no ecchymosis and no unusual warmth and lower leg Details: tenderness Location: of the posterior calf (Proximal); no erythema Other: Right knee effusion with some tenderness posteriorly, no erythema or warmth, discomfort with passive flexion posteriorly Course Vital Signs Vital signs: Vital Signs Temperature 36.6 C 03/06/20 13:02 Pulse 97 H 03/06/20 13:02 Respiratory Rate 16 03/06/20 13:02 Pulse Oximetry 97 06/21/20 13:02 Temperature 36.6 C 03/06/20 13:02 Temperature Source Skin 03/06/20 13:02 Pulse 97 H 03/06/20 13:02 Respiratory Rate 18 03/06/20 13:17 Respiratory Effort Non-Labored 03/06/20 13:17 Respiratory Depth Normal 03/06/20 13:17 Respiratory Pattern Normal 03/06/20 13:17 Blood Pressure Position Sitting 03/06/20 13:02 Pulse Oximetry 97 03/06/20 13:02 Oxygen Delivery Method Bi-pap 03/06/20 13:02 Oxygen Flow Rate 0 03/06/20 13:02 Procedures Joint Aspiration/Injection Joint Asp./Inject. 1: Time Out Performed: Yes Side of body: right Joint Aspirated: knee Ultrasound Guidance: No Skin Prep: Povidone-Iodine1% Local Anesthetic: Lidocaine 1% Amount of anesthesia used (mL): 3 Needle Size Used: 18G Fluid Obtained: viscous Total fluid obtained (mL): 40 Medication Injected, if any: other (10 cc Marcaine 2% and 80 mg Depo- Medrol) Amount of Medication Injected (mls): 11 Patient Tolerated Procedure: well and no complications Complications: none
[2020-03-06 14:24] VITALS: BP 122/67; PULSE 66; RESP 18; TEMP 36.5; O2SAT 96
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
[2020-03-06 15:48] LABS: Clarity Cloudy; Source R KNEE
[2020-03-06 15:49] LABS: Nucleated Cells 25140 /MM3 (0-0)
[2020-03-06 16:05] LABS: Mononuclear Cells 5 % (0-0); Polynuclear Cells 95 % (0-0)
[2020-03-06 16:07] VITALS: BP 121/73; PULSE 60; RESP 18; TEMP 36.5; O2SAT 99
== END 2020-03-06 16:07 | disposition home or self-care (01) ==
PROVIDERS: Emergency Provider Student in an Organized Health Care Education/Training Program; PCP Family Medicine
DX: M25.461 Effusion, right knee (principal)
CPT/HCPCS: 20610; 73562; 99283; 87070; 87205; 89051; 89060

== ENCOUNTER → 2020-03-15 11:47 | Outpatient (BNVA) | payer MEDICARE, BC, SELFPAY | PROVIDERS: PCP Family Medicine; Referring Provider Student in an Organized Health Care Education/Training Program; Visit Provider Orthopaedic Surgery | DX: M10.061 Idiopathic gout, right knee (principal); Z79.899 Other long term (current) drug therapy | CPT/HCPCS: 99203; 99214 ==

== ENCOUNTER 2020-03-16 04:26 | Outpatient (CLI) | payer MEDICARE, BC, SELFPAY ==
[2020-03-16 12:37] LABS: Uric Acid 5.5 mg/dL (3.5-7.2)
== END 2020-03-16 04:46 ==
PROVIDERS: Physician Assistant Surgical; PCP Family Medicine; Visit Provider Orthopaedic Surgery
DX: M10.9 Gout, unspecified (principal)
CPT/HCPCS: 36415; 84550

== ENCOUNTER 2020-11-19 03:25 | Emergency (ER) | payer MEDICARE, BC, SELFPAY ==
--- NOTE | 2020-11-19 03:29 | ED.GENADUL_ITS ---
Discharge Plan Disposition Patient Disposition: HOME Condition: Good Discharge Details Clinical Impression: Bilateral thigh pain Primary Care Provider: Flaco Gerber ED Provider: Luis Butler [place] Meds and New Rx's Prescriptions: New Hydrocodone/Apap 5/325, 4 Tab [[place] 5/325, 4 Tabs/Btl] 1 tab PO BID PRN (Reason: Pain) Qty: 4 RF: 0 prednisone 5 mg tablet 15 mg PO DAILY Qty: 30 RF: 0 Continued indomethacin 50 mg capsule 50 mg PO TID PRN (Reason: gout) Qty: 30 RF: 6 tamsulosin 0.4 mg capsule 0.4 mg PO QHS Qty: 90 RF: 3 aripiprazole [Abilify] 5 mg tablet 10 mg PO DAILY Qty: 180 RF: 3 omeprazole 20 mg capsule,delayed release(DR/EC) 20 mg PO DAILY Qty: 90 RF: 3 diazepam 10 mg tablet 10 mg PO DAILY MDD 10 mg Qty: 28 RF: 1 gabapentin 300 mg capsule 300 mg PO TID RF: 0 Viibryd 20 mg tablet 10 mg PO DAILY RF: 0 Discharge Instructions Additional Instructions: As we discussed I think this is PMR and hopefully responds to the prednisone. I do not want you taking any nonsteroidal medications. You may use the hydrocodone/acetaminophen for extreme pain over the weekend. Otherwise continue acetaminophen for milder discomfort. Take the prednisone daily in the morning as directed. Call primary care Saturday for follow-up later in the week. Return to ED if you develop temporal headaches, vision change, neurologic change, fever, new or worsening symptoms. Referrals: Flaco Gerber DO [Primary Care Provider] - Medical Decision Making Patient presenting with bilateral proximal leg pain and weakness. He is actually not weak in the lower extremities, but I suspect the pain that he has with attempts to ambulate certainly makes him feel weak. There is no muscle tenderness. I doubt this is related to myositis. There is nothing neurologic that I can ascertain. There is no low back tenderness or pain. There is no fever. There have been no viral illness in the last month. While there is no involvement of the shoulders or neck, I suspect this is likely PMR. He has no headaches or visual change. IV established and laboratory studies sent. X-rays of pelvis and femur ordered to rule out possible malignant process. Fentanyl given for pain. Unfortunately, sed rate is a send out at this time due to our machine being broken. His CRP is elevated to 1.93. CPK is normal. CBC and chemistries unremarkable. Liver function normal. TSH normal. X-rays with no evidence of lytic lesions. Evidence of small bilateral knee effusions per radiology. Almost of his discomfort and stiffness is more proximal though he does have some knee complaints. He has no headache or visual changes. He has no shoulder or neck pain or stiffness. Given the elevated CRP with otherwise normal labs and presenting proximal LE pain and stiffness, I feel this is likely an atypical presentation of PMR. Possible this an arthridides, but it is not really joints that are bothering him. There are no neurological changes. I am going to start him on low-dose prednisone for presumptive PMR. IV fentanyl did not really seem to help with his pain. We will give him the Vicodin now and four to go for the weekend while allowing for the prednisone to start working. We discussed no use of nonsteroidals while on the prednisone. He will continue his omeprazole. He may use Tylenol. Follow-up with his primary care at the end of next week to see if any improvement. Return to ED for fever, neurologic change, vision change, worsening pain or symptoms. Medical Records Medical records reviewed: Yes I reviewed the patient's medical records. Lab Data Lab results reviewed: Yes I reviewed the patient's lab results. HPI General Mode of arrival: wheelchair . Date/Time Provider Initiated Documentation: 11/19/20 03:25 . Limitations to Documentation: no limitations . Information obtained by: patient, RN notes reviewed and old records reviewed . HPI Narrative: Patient presents to ED with complaint of bilateral lower extremity pain and weakness. Patient reports symptoms for about a week now. Saw primary care 2 days ago. Was started on naproxen for presumed muscular pain. This does not help. Pain seems to start in the hips and goes down the thighs to the back of the knees. Does not really have much beyond that. Denies any back pain. Has no change in sensation, bladder or bowel habits. He has significant pain and stiffness in his proximal legs. After standing for some time he began shaking and feels weak. He has no symptoms involving the upper extremities, neck. He denies headache, eye pain, visual change. He denies any injury. He is unable to tolerate the pain presents to ED for further evaluation. Related Data Home Medications Medication Instructions Recorded Confirmed indomethacin 50 mg capsule 50 mg PO TID PRN #30 cap 10/27/19 11/19/20 tamsulosin 0.4 mg capsule 0.4 mg PO QHS #90 cap 11/10/19 11/19/20 gabapentin 300 mg capsule 300 mg PO TID cap 03/17/20 11/19/20 aripiprazole 5 mg tablet 10 mg PO DAILY #180 tab 08/08/20 11/19/20 omeprazole 20 mg capsule,delayed 20 mg PO DAILY #90 cap 08/08/20 11/19/20 release diazepam 10 mg tablet 10 mg PO DAILY #28 tab-cap MDD 10 10/14/20 11/19/20 mg vilazodone 20 mg tablet 10 mg PO DAILY tab 11/17/20 11/19/20 HYDROcodone/APAP 5/325, 4 tab 1 tab PO BID PRN #4 tab 11/19/20 [[place] 5/325, 4 tabs/btl] prednisone 15 mg PO DAILY #30 tab 11/19/20 Previous Rx's Medication Instructions Recorded indomethacin 50 mg capsule 50 mg PO TID PRN #30 cap 10/27/19 tamsulosin 0.4 mg capsule 0.4 mg PO QHS #90 cap 11/10/19 aripiprazole 5 mg tablet 10 mg PO DAILY #180 tab 08/08/20 omeprazole 20 mg capsule,delayed 20 mg PO DAILY #90 cap 08/08/20 release diazepam 10 mg tablet 10 mg PO DAILY #28 tab-cap MDD 10 10/14/20 mg HYDROcodone/APAP 5/325, 4 tab 1 tab PO BID PRN #4 tab 11/19/20 [[place] 5/325, 4 tabs/btl] prednisone 15 mg PO DAILY #30 tab 11/19/20 Allergies Allergy/AdvReac Type Severity Reaction Status Date / Time bupropion AdvReac Intermediate jittery Verified 11/19/20 03:36 colchicine AdvReac Intermediate Diarrhea Verified 11/19/20 03:36 paroxetine AdvReac Mild Verified 11/19/20 03:36 morphine sulfate AdvReac CONSTIPATIO Verified 11/19/20 03:36 [From MS Contin] N General JAMIE: 3 Review of Systems Narrative: As documented in HPI otherwise negative as below. Const: no fever, chills Resp: no cough, SOB, pleuritic pain CV: no CP, diaphoresis, edema, syncope GI: no abdominal pain, nausea, vomiting, diarrhea Neuro: no headache, numbness, focal weakness, confusion [facility] Medical History Alcohol abuse, in remission (01/06/15) Depressive disorder (09/16/05) Dr Sigala since 2004; now in [place], venlofexin rx Dysphonia (10/26/13) Former smoker Quit 09/03 Generalized anxiety disorder (02/12/13) Panic too GERD with esophagitis Gout (06/16/04) h/o multiple attacks, rx with allopurinol [address] [facility] Grief at loss of child (01/06/15) Dtr of cancer 10/2014 Hyperlipidemia (02/12/13) Pharyngoesophageal dysphagia PTSD (post-traumatic stress disorder) (05/03/14) secondary to exposure [place] ([place]), prior Dr. Sigala; SS Disability 10/2014; Crisis 06/09/14 [place] Sleep apnea (02/12/13) Stomatitis (09/01/20) [facility] [place] Tobacco dependence syndrome (02/12/13) Surgical History History of circumcision History of orchiectomy 12/17/07 S/P ORIF (open reduction internal fixation) fracture femur fx 10/17/03 S/P vasectomy Family History Brother Anxiety Daughter Lymphoma Mother , age 64 Depression Heart disease Brother Alcohol abuse 4 brothers w/ alcoholism 3 brothers of accidents Social History Smoking/Tobacco Use Status: Current every day Tobacco Type: cigarettes Quit status: considering quitting Smoking risk assessment performed?: Yes Alcohol Intake: former Details: 2 Drug use: Current Sobriety Substance use type: marijuana Details: No IV Drug Use Adopted: No Caregiver/Support person: No Foster care: No Household members: none Housing: other Details: Rent Number of Children: 1 Communication Needs: None Do you need help understanding health information?: Never current occupation: Retired Sexually active: Yes Do you think of yourself as: straight/heterosexual Current gender identity: male What type of physical activity do you participate in: none Seatbelt use: always Do you feel safe at home: Yes Do you feel safe in your relationship?: Yes Exam Narrative Exam Narrative: Const: WDWN elderly male in NAD. HEENT: NC/AT. Normal facial exam. Eyes: Normal conjunctiva and sclera. Neck: Supple. Trachea midline. Lungs: Normal respiratory effort. Cor: Good strong distal pulses. GI: Soft. NT/ND. No guarding or rebound. Back: No decrease in ROM. No midline spine tenderness. Neuro: A+O x 3. Normal speech, mentation. Cranial nerves II - XII grossly intact. UE normal in strength and sensation. LE normal in sensation. Strength is normal in LE, though limited in the proximal muscles due to pain. Ext: No C/C/E. Upper extremities are normal in range of motion and movement. Lower extremities with decreased range of motion and stiffness mostly in the hips, mild in the knees. No actual muscle tenderness anywhere. Skin: Warm and dry without rash.
[2020-11-19 03:30] VITALS: BP 160/83; PULSE 78; RESP 18; TEMP 36.7; O2SAT 99
[2020-11-19 03:34] VITALS: RESP 18
[2020-11-19] MEDS: fentaNYL 100 MCG/2 ML VIAL 50 MCG IVP (04:01)
[2020-11-19 04:05] LABS: Abs Immature Grans 0.07 10^3/uL (0.0-0.06); Absolute Basophil Count 0.03 10^3/uL (0.0-0.2); Absolute Eosinophil Count 0.13 10^3/uL (0.0-0.7); Absolute Lymphocyte Count 1.14 10^3/uL (1.2-3.4); Absolute Monocyte Count 0.59 10^3/uL (0.1-0.8); Absolute Neutrophil Count 5.61 10^3/uL (1.2-6.7); Basophils % 0.4; Eosinophils % 1.7; HCT 41.4 % (40.0-50.0); HGB 14.4 g/dL (13.5-17.5); Immature Grans % 0.9; Lymphocytes % 15.1; MCH 32.7 pg (27.0-33.0); MCHC 34.8 % (32.0-36.0); MCV 93.9 fL (80-95); MPV 9.5 fL (8.0-11.0); Monocytes % 7.8; Neutrophils % 74.1; Nucleated RBC 0 %; Platelet Count 162 10^3/uL (130-400); RBC 4.41 10^6/uL (4.36-5.78); RDW 11.7 % (11.8-14.1); RDW-SD 40.4 fL; WBC 7.57 10^3/uL (4.4-10.8)
[2020-11-19 04:16] LABS: ALT 37 U/L (16-63); AST 14 U/L (15-37); Albumin 3.4 g/dL (3.4-5.0); Alkaline Phosphatase 93 U/L (46-116); Anion Gap 7.5 mmol/L (3-11); BUN 14 mg/dL (7-18); Bilirubin, Total 0.3 mg/dL (0.2-1.0); CO2 29.5 mmol/L (21.0-32.0); Calcium 8.7 mg/dL (8.5-10.1); Chloride 102 mmol/L (98-107); Creatine Kinase 68 U/L (39-308); Glucose 129 mg/dL (74-106); Magnesium 1.9 mg/dL (1.8-2.4); Potassium 4.6 mmol/L (3.5-5.1); Sodium 139 mmol/L (136-145); Total Protein 7.7 g/dL (6.4-8.2)
[2020-11-19 04:23] LABS: C-Reactive Protein 1.93 mg/dL (0.0-0.3)
[2020-11-19 04:42] LABS: TSH (W/Ref FT4) 3.25 uIU/mL (0.36-3.74)
--- NOTE | 2020-11-19 05:06 | DI.RAD_ITS ---
EXAM: XR PELVIS AP CLINICAL HISTORY: pain. TECHNIQUE: 2D digital imaging was performed. COMPARISON: No exams were available for comparison FINDINGS: BONES: No acute fracture is present. No bony destructive lesion is seen. The proximal aspect of an in tramedullary sylvia is seen in the right femur. JOINTS: No dislocation present. Mild degenerative changes of the hips bilaterally. SOFT TISSUE: Normal. IMPRESSION: No acute abnormality. DATA REPOSITORY: RADIATION DOSE DELIVERED:
--- NOTE | 2020-11-19 05:06 | DI.RAD_ITS ---
EXAM: XR FEMUR LT CLINICAL HISTORY: pain. TECHNIQUE: 2D digital imaging was performed. COMPARISON: No exams were available for comparison FINDINGS: BONES: No acute fracture is present. No bony destructive lesion is seen. There is a moderate left kne e joint effusion. SOFT TISSUE: Normal. IMPRESSION: Moderate left knee joint effusion. No acute fracture or dislocation. DATA REPOSITORY: RADIATION DOSE DELIVERED:
--- NOTE | 2020-11-19 05:06 | DI.RAD_ITS ---
EXAM: XR FEMUR RT CLINICAL HISTORY: pain. TECHNIQUE: 2D digital imaging was performed. COMPARISON: No exams were available for comparison FINDINGS: BONES: No acute fracture is present. There is an intramedullary sylvia transfixing an old healed right femoral fracture. No bony destructive lesion is seen. Degenerative changes are seen in the right hip . There is a small right knee joint effusion. SOFT TISSUE: Vascular calcifications are seen in the soft tissues. Surgical clips are seen inferior to the pelvis probably reflecting prior vasectomy. IMPRESSION: 1. Small right knee effusion. 2. No acute fracture or dislocation. DATA REPOSITORY: RADIATION DOSE DELIVERED:
--- NOTE | 2020-11-19 05:46 | DI.VRAD_ITS ---
PROCEDURE INFORMATION: Exam: XR Pelvis Exam date and time: 11/19/2020 5:06 AM Age: 70 years old Clinical indication: Bilateral hip pain and pelvic pain x 1 wk, difficulty ambulating; Prior surgery; Right femoral rodding TECHNIQUE: Imaging protocol: XR pelvis. Views: 1 or 2 view. COMPARISON: No relevant prior studies available. FINDINGS: Bones/joints: No acute fracture. No dislocation. No joint space narrowing or degenerative change. Right femoral intramedullary sylvia. Soft tissues: Unremarkable. IMPRESSION: No acute findings. Dictated and Authenticated by: Howard Fraser MD. Ordering:AYANA Smith MD
--- NOTE | 2020-11-19 05:47 | DI.VRAD_ITS ---
PROCEDURE INFORMATION: Exam: XR Left Femur Exam date and time: 11/19/2020 5:07 AM Age: 70 years old Clinical indication: Bilateral hip pain and pelvic pain x 1 wk, difficulty ambulating; Prior surgery; Right femoral rodding TECHNIQUE: Imaging protocol: XR Left femur. Views: 2 views. COMPARISON: No relevant prior studies available. FINDINGS: Bones/joints: No acute fracture. No dislocation. No focal osseous lesion. Left knee joint effusion. Soft tissues: No soft tissue radiopaque foreign body. Vasculature: Arterial calcification. Other findings: Likely prior vasectomy. IMPRESSION: 1. Normal left femur. 2. Left knee joint effusion. Dictated and Authenticated by: Howard Fraser MD. Ordering:AYANA Smith MD
[2020-11-19] MEDS: HYDROcodone 5/Acetaminophen 325 TAB PO (05:49)
[2020-11-19] MEDS: predniSONE 5 MG TAB 15 MG PO (05:50)
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
[2020-11-19 06:17] VITALS: BP 160/83; PULSE 78; RESP 18; TEMP 36.7; O2SAT 99
[2020-11-19 12:58] LABS: ESR 16 mm/hr (<or=20)
== END 2020-11-19 06:00 | disposition home or self-care (01) ==
PROVIDERS: Emergency Provider Emergency Medicine; PCP Family Medicine
DX: M79.651 Pain in right thigh (principal); M79.652 Pain in left thigh
CPT/HCPCS: 36415; 73552; 80053; 82550; 85652; 96374; 99284; 72170; 83735; 84443; 85025; 86140; J3010; J7512

== ENCOUNTER 2021-01-05 01:55 | Outpatient (CLI) | payer MEDICARE, BC, SELFPAY ==
--- NOTE | 2021-01-05 06:30 | DI.US_ITS ---
EXAM: US AAA SCREENING CLINICAL HISTORY: History of smoking,screening for aaa,z13.6 TECHNIQUE: Ultrasound of complete upper abdomen performed using standard protocol. COMPARISON: No exams were available for comparison FINDINGS: There is no evidence of abdominal aortic aneurysm. Maximum diameter of the abdominal aorta is 2.7 cm . The visualized aspects of both common iliac arteries exhibit mild arterial megaly with maximum diamet er 1.4 cm on the right and 1.5 cm before the left common iliac artery. IMPRESSION: 1. There is no evidence of abdominal aortic aneurysm. 2. Mild arterial megaly of the visualized common iliac arteries. DATA REPOSITORY:
== END 2021-01-05 02:15 ==
PROVIDERS: PCP Family Medicine; Visit Provider Family Medicine
DX: Z13.6 Encounter for screening for cardiovascular disorders (principal); Z87.891 Personal history of nicotine dependence
CPT/HCPCS: 76706

== ENCOUNTER 2021-10-25 01:48 | Outpatient (CLI) | payer MEDICARE, BC, SELFPAY ==
[2021-10-25 11:23] LABS: Abs Immature Grans 0.05 10^3/uL (0.0-0.06); Absolute Basophil Count 0.02 10^3/uL (0.0-0.2); Absolute Eosinophil Count 0.08 10^3/uL (0.0-0.7); Absolute Lymphocyte Count 1.24 10^3/uL (1.2-3.4); Basophils % 0.2; HGB 14.4 g/dL (13.5-17.5); Immature Grans % 0.6; Lymphocytes % 15.3; MCH 31.2 pg (27.0-33.0); MCHC 34.3 % (32.0-36.0); MCV 91.1 fL (80-95); MPV 9.7 fL (8.0-11.0); Monocytes % 4.9; Nucleated RBC 0 %; Platelet Count 160 10^3/uL (130-400); RBC 4.61 10^6/uL (4.36-5.78); RDW 12.1 % (11.8-14.1); RDW-SD 40.5 fL; WBC 8.09 10^3/uL (4.4-10.8)
[2021-10-25 11:44] LABS: Hemoglobin A1C 5.5 % (<5.7)
[2021-10-25 12:47] LABS: Creatine Kinase 913 U/L (39-308)
[2021-10-25 12:58] LABS: Calculated LDL 155 mg/dL (<100); Cholesterol 227 mg/dL (<200); HDL Cholesterol 43 mg/dL (40-60); Triglyceride 145 mg/dL (<150)
[2021-10-25 13:18] LABS: ALT 43 U/L (16-63); AST 47 U/L (15-37); Albumin 3.9 g/dL (3.4-5.0); Alkaline Phosphatase 87 U/L (46-116); Anion Gap 6.3 mmol/L (3-11); BUN 15 mg/dL (7-18); Bilirubin, Total 0.3 mg/dL (0.2-1.0); CO2 30.7 mmol/L (21.0-32.0); Calcium 9.1 mg/dL (8.5-10.1); Chloride 102 mmol/L (98-107); Ferritin 201 ng/mL (26-388); Glucose 85 mg/dL (74-106); Magnesium 1.9 mg/dL (1.8-2.4); Potassium 4.5 mmol/L (3.5-5.1); Sodium 139 mmol/L (136-145); TSH 2.01 uIU/mL (0.36-3.74); Total Protein 7.4 g/dL (6.4-8.2); Vitamin B12 460 pg/mL (193-986)
[2021-10-25 13:39] LABS: FREE T4 0.91 ng/dL (0.76-1.46)
[2021-10-25 22:13] LABS: T3,Free 3.9 pg/mL (2.8-5.3)
[2021-10-26 00:15] LABS: Vitamin D 25 Total 23.7 ng/mL (30-100)
== END 2021-10-25 01:49 | disposition home or self-care (01) ==
LOC: LBO 01:48
PROVIDERS: PCP Family Medicine; Visit Provider Psychiatry & Neurology Psychiatry
DX: M35.3 Polymyalgia rheumatica (principal); Z13.6 Encounter for screening for cardiovascular disorders; F33.1 Major depressive disorder, recurrent, moderate; Z51.81 Encounter for therapeutic drug level monitoring
CPT/HCPCS: 36415; 80053; 80061; 82306; 82550; 82607; 82728; 83036; 83735; 84439; 84443; 84481; 85025; 86140

== ENCOUNTER → 2022-07-18 08:18 | Outpatient (BNVA) | payer MEDICARE, BC, SELFPAY | PROVIDERS: PCP Family Medicine; Referring Provider Family Medicine; Visit Provider Surgery | DX: L98.9 Disorder of the skin and subcutaneous tissue, unspecified (principal) | CPT/HCPCS: 99213 ==

== ENCOUNTER → 2022-08-01 10:25 | Outpatient (BNVA) | payer MEDICARE, BC, SELFPAY | PROVIDERS: PCP Family Medicine; Referring Provider Family Medicine; Visit Provider Surgery | DX: L82.1 Other seborrheic keratosis (principal); L90.5 Scar conditions and fibrosis of skin | CPT/HCPCS: 11423 ==

== ENCOUNTER 2022-08-01 11:05 | Outpatient (REF) | payer MEDICARE, BC, SELFPAY ==
--- NOTE | 2022-08-01 10:50 | SKI_PTH ---
PATIENT: Steven Norris LOC: [facility] U#:[id number] AGE/SX: 71/M ROOM: RE08/01/[address]: Thang Head MD : 1950 BED: DIS: 08/01/2022 SPEC #: [id number] RECD: 08/01/22 12:56 STATUS: JOSE FRANCISCO REQ #: [id number] ROBERTO: 08/01/22 10:[address]: Thang Head DEPT: Surgical Specimen RECD BY: Demetria Oconnell ENTERED: 08/01/22 12:56 SP TYPE: FLORINDA MONDRAGON DR: Flaco Gerber DO Tissues: 1 - SKIN BIOPSY(SHAVE/PUNCH) Procedures: SKIN LEVEL 4 Comments: [id number]
== END 2022-08-01 11:06 | disposition home or self-care (01) ==
LOC: LBN 11:05
PROVIDERS: PCP Family Medicine; Visit Provider Surgery
DX: L90.5 Scar conditions and fibrosis of skin (principal); L82.1 Other seborrheic keratosis
CPT/HCPCS: 88305

== ENCOUNTER → 2022-08-08 09:13 | Outpatient (BNVA) | payer MEDICARE, BC, SELFPAY | PROVIDERS: PCP Family Medicine; Referring Provider Family Medicine; Visit Provider Surgery | DX: L82.1 Other seborrheic keratosis (principal) | CPT/HCPCS: 99212 ==

== ENCOUNTER → 2024-03-04 02:16 | Outpatient (CLI) | payer MEDICARE, BC, SELFPAY ==
--- NOTE | 2024-03-04 08:00 | DI.CTLCSR_ITS ---
Exam(s) CT CHEST LUNG CANCER SCREEN EXAM: CT CHEST LUNG CANCER SCREEN CLINICAL HISTORY: Screening for lung cancer, FORMER SMOKER, Z87.891 TECHNIQUE: Imaging Protocol: Axial computed tomography images with coronal and sagittal reformatted images were created and reviewed. Low dose screening protocol. COMPARISON: CT NECK WITH CONTRAST from 10/26/2013 FINDINGS: Tracheobronchial tree: No bronchiectasis or mucus plugging. Mediastinum and Dulce: No dominant adenopathy or fluid collection. Pulmonary parenchyma: No consolidation or dominant measurable mass. Mild emphysematous changes. Inte rstitial changes greater peripherally and in the upper lobes. Lung Nodules: None. Pleura: No effusion. No pneumothorax. Heart: The heart is not dilated. Moderate to severe coronary artery calcifications are seen. Aorta: Thoracic aorta non-dilated. Upper abdomen: Unremarkable. Bones: Unremarkable for age. Soft Tissues: Unremarkable. IMPRESSION: No suspicious pulmonary nodules. Lung RADS Cat 1 - Negative: No nodules and definitely benign nodules Lung-RADS 1.0 CATEGORIES: Category 0 - Prior chest CT exam(s) being located for comparison. Category 1 - Annual screening in 12 months. No nodules or definitely benign nodules. Category 2 - Annual screening in 12 months. Benign appearance. Nodules with low likelihood of becomin g active cancer. Category 3 - 6-month follow-up. Probably benign. Short-term follow-up suggested. Nodules with low lik elihood of becoming active cancer. Category 4A - 3-month follow-up and CT/PET if >8 mm in size. Suspicious finding. Findings which requi re additional testing. Category 4B - Findings which require additional testing and tissue sampling. Category 4X - Category 3 or 4 nodules with additional features or imaging findings that increases the suspicion of malignancy. Modifier S- Potentially clinically significant findings (non lung cancer) RADIATION DOSE DELIVERED: 79.63mGy.cm Total DLP DATA REPOSITORY: All CT scans at this facility are submitted to the National Radiology Data Registry (NRDR) Dose Index Registry (DIR) with the [employer] (ACR). RADIATION OPTIMIZATION: All CT scans at this facility use at least one of these dose optimization te chniques: automated exposure control; mA and/or kV adjustment per patient size (includes targeted exa ms where dose is matched to clinical indication); or iterative reconstruction.
== END ==
PROVIDERS: PCP Family Medicine; Visit Provider Family Medicine
DX: Z87.891 Personal history of nicotine dependence (principal)
CPT/HCPCS: 71271

== ENCOUNTER 2024-03-18 02:37 | Outpatient (CLI) | payer MEDICARE, BC, SELFPAY ==
[2024-03-18 12:33] LABS: ALT 61 U/L (16-63); AST 42 U/L (15-37); Albumin 3.8 g/dL (3.4-5.0); Alkaline Phosphatase 82 U/L (46-116); Anion Gap 6.8 mmol/L (3-11); BUN 14 mg/dL (7-18); Bilirubin, Total 0.38 mg/dL (0.2-1.0); CO2 30.2 mmol/L (21.0-32.0); CREATININE 1.1 mg/dL (0.70-1.30); Calcium 9.3 mg/dL (8.5-10.1); Chloride 102 mmol/L (98-107); Estimated GFR 71.77 (mL/min/1.73m2); Glucose 113 mg/dL (74-106); Potassium 4.2 mmol/L (3.5-5.1); Sodium 139 mmol/L (136-145); Total Protein 7.6 g/dL (6.4-8.2)
[2024-03-18 12:39] LABS: INR 1.2 (0.9-1.1); Prothrombin Time 11.6 sec (9.1-11.1)
== END 2024-03-18 02:38 | disposition home or self-care (01) ==
LOC: LBO 02:37
PROVIDERS: PCP Family Medicine; Visit Provider Emergency Medicine
DX: T50.905A Adverse effect of unspecified drugs, medicaments and biological substances, initial encounter (principal); J38.3 Other diseases of vocal cords
CPT/HCPCS: 36415; 80053; 85610

== ENCOUNTER 2024-03-30 06:59 | Day surgery (SDC) | payer MEDICARE, BC, SELFPAY ==
[2024-03-30] VITALS (15 sets, daily range): BP systolic 104–136; BP diastolic 50–67; PULSE 67–78; RESP 12–20; TEMP 36.2–36.5; O2SAT 94–100; BMI 27.9
--- NOTE | 2024-03-30 07:20 | W.PM.DSUDISC ---
Date of service: 03/30/24 Time of Service: 07:22 Discharge Plan Disposition Patient Disposition: Home Condition: Good Discharge Details Reason For Visit: Microlaryngoscopy with biopsy Attending Provider: Dc Jordan Primary Care Provider: Flaco Gerber Home Meds and New Rx's Prescriptions: No Action aripiprazole [Abilify] 5 mg tablet 10 mg PO DAILY Qty: 180 3RF escitalopram oxalate 20 mg tablet 20 mg PO DAILY diazepam [Valium] 10 mg tablet 10 mg PO BID PRN Patient Comments: 01/19/21: one tab in the AM and one tab at 3pm. atorvastatin 40 mg tablet 40 mg PO QHS Qty: 90 3RF Discharge Instructions Additional Instructions: My cell phone number is [phone]. Please call with any questions or concerns. If you are unable to reach me and you feel it is an emergency, please proceed to the emergency room or call 911. No shouting or whispering. No smoking. Avoid excess speech or throat clearing. Ibuprofen or Tylenol for any discomfort No dietary limitations Discharge Orders Discharge Orders: Discharge Order (Routine); Ordered 03/30/24 Ordered By: Dc Jordan
--- NOTE | 2024-03-30 07:22 | W.PM.OP ---
Date of service: 03/30/24 Time of Service: 08:23 Operative Note Operative Note DATE OF PROCEDURE: 03/30/24 PRE-OP DIAGNOSIS: Right vocal cord mass POST-OP DIAGNOSIS: same PROCEDURE: Microlaryngoscopy with right vocal cord mass biopsy SURGEON: Dc Jordan ANESTHESIA TYPE: General LMA/ETT Refer to Anesthesia Record ESTIMATED BLOOD LOSS: 2 PATHOLOGY: other (Right true vocal cord biopsy) Patient's condition: stable Indications: Patient with a right true vocal cord mass with a history of smoking and hoarseness. Options were explained to the patient regarding further management. He elected to undergo the above procedure. Consent was filled out and signed prior to the procedure. H&P was reviewed. There have been no changes. All questions were answered prior to the procedure. Findings: Fungiform mass, right posterior half of vocal cord, extending into the ventricular fold, hypervascular, no leukoplakia, solitary Procedure Description: After obtaining an adequate level of general endotracheal anesthesia using a 6.0 standard ETT tube, the patient was positioned in the supine position and prepped and draped in appropriate fashion. Dental guard was placed along the upper dentition and the Holinger laryngoscope carefully introduced into the oral cavity and advanced into the laryngeal inlet before was placed in suspension, affording an excellent view of the vocal cords. The right true vocal cord mass was identified and biopsy forceps used to remove 3 biopsies from the friable mass. The anterior and posterior extents of the mass were not violated. After ensuring adequate hemostasis, the laryngoscope was carefully withdrawn after taking it out of suspension and the dentition inspected revealing no damage to the dentition. The patient was then awakened and transported recovery room in stable condition by anesthesia. I was present throughout the entire case.
[2024-03-30] MEDS: Lactated Ringers 1,000 ML 100 ML IV (07:32)
--- NOTE | 2024-03-30 07:42 | ANES.PREOP_ITS ---
General Info Date of Service Date Performed: 03/30/24 Height: 5 ft 7 in Weight: 81 kg Body Mass Index (BMI): 27.9 Surgical Procedure: Operation Date: 03/30/24 07:40 Proposed Procedure Side Surgeon p Micro Laryngoscopy w/Rt Vocal Mass/ Excision w/Biopsy Dc Jordan MD Pre-Op Diagnosis Post-Op Diagnosis Lesion of true vocal cord Meds Allergies and Home Medications Allergies Allergy/AdvReac Type Severity Reaction Status Date / Time bupropion AdvReac Intermediate jittery Verified 03/27/24 10:10 colchicine AdvReac Intermediate Diarrhea Verified 03/27/24 10:10 paroxetine AdvReac Mild Other (See Verified 03/27/24 10:10 Comment) cariprazine (From Vraylar) AdvReac Unknown GI side Verified 03/27/24 10:10 effects morphine sulfate (From MS AdvReac CONSTIPATIO Verified 03/27/24 10:10 Contin) N Home Medication ?Medication ?Instructions ?Recorded aripiprazole 5 mg tablet (Abilify) 10 mg (2 x 5 mg) PO DAILY #180 tabs 08/08/20 diazepam 10 mg tablet (Valium) 10 mg PO BID PRN 01/30/21 atorvastatin 40 mg tablet 40 mg PO QHS #90 tabs 01/11/23 escitalopram oxalate 20 mg tablet 20 mg PO DAILY 11/01/23 Current Visit Medications: Current Medications Generic Name Dose Route Start Last Admin Trade Name Freq PRN Reason Stop Dose Admin Acetaminophen 320 - 650 mg 03/30/24 07:20 Acetaminophen Solution 650 Mg/20.3 Ml Cup PO 04/29/24 07:19 Q4H PRN PRN Ringer's Solution 1,000 mls @ 100 mls/hr 03/30/24 06:00 03/30/24 07:32 IV 04/26/24 23:59 100 mls/hr INFUSION ELIGIO Administration IV Miscellaneous Supplies 1 each 03/30/24 06:00 Iv Access IV 04/26/24 23:59 DIRECTED ELIGIO Ibuprofen 600 mg 03/30/24 07:20 Ibuprofen 600 Mg Tab PO 04/29/24 07:19 Q6H PRN PRN Sodium Chloride 0 ml 03/30/24 06:00 Normal Saline Flush 10 Ml Syr IV 04/26/24 23:59 PRN PRN Sodium Chloride 0 ml 03/30/24 06:00 Normal Saline 10 Ml Vial IJ 04/26/24 23:59 DIRECTED PRN Sterile Water 0 ml 03/30/24 06:00 Water,Injection,Sterile 10 Ml Vial IJ 04/26/24 23:59 DIRECTED PRN PFSH Active Problems Active Problems: Problem Status Onset Code 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 Skin lesion of neck Resolved L98.9 Polymyalgia rheumatica Acute M35.3 Bilateral thigh pain Acute M79.651, M79.652 Stomatitis Acute 09/01/20 K12.1 Gout of right knee Acute M10.9 Former smoker Chronic Z87.891 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 Hoarseness Acute R49.0 Xerostomia Acute R68.2 Esophageal dysphagia Acute R13.10 Odynophagia Acute R13.10 GERD with esophagitis Acute K21.0 Pharyngoesophageal dysphagia Acute R13.14 Alcohol abuse, in remission Acute 01/06/15 F10.11 Dysphonia Acute 10/26/13 R49.0 Depressive disorder Chronic 09/16/05 F32.9 Generalized anxiety disorder Acute 02/12/13 F41.1 Gout Acute 06/16/04 M10.9 Grief at loss of child Acute 01/06/15 F43.21, Z63.4 Hyperlipidemia Acute 02/12/13 E78.5 PTSD (post-traumatic stress disorder) Acute 05/03/14 F43.10 Sleep apnea Acute 02/12/13 G47.30 Medical History Medical History Tobacco dependence syndrome (02/12/13) Medical History Comments:: Pt. states no potential triggers in r/t PTSD Surgical History Surgical History History of orchiectomy 12/17/07.Pt. states it was the epididimus History of circumcision S/P vasectomy S/P ORIF (open reduction internal fixation) fracture femur fx 10/17/03 Tobacco Smoking/Tobacco Use Status: Former Tobacco Use Alcohol Alcohol Intake: current Alcohol intake frequency: 3 or more drinks per day Alcohol type: beer Details: 2 Substance Use Substance use: Daily Substance use type: marijuana Details: Smoked Marijuana at 2100 on 03/29/24 Vital Signs and Lab Results Vital Signs Most Recent Vital Signs in EMR: Most Recent Vital Signs Temp Pulse Resp BP Pulse Ox 36.4 C L 78 20 136/67 100 03/30/24 07:13 03/30/24 07:13 03/30/24 07:13 03/30/24 07:13 03/30/24 07:13 Lab Results Blood Type / Crossmatch: No Data to Display Complete Blood Count: No Data to Display Complete Metabolic Panel: Sodium 139 mmol/L (136-145) 03/18/24 12:08 Potassium 4.2 mmol/L (3.5-5.1) 03/18/24 12:08 Chloride 102 mmol/L (98-107) 03/18/24 12:08 Carbon Dioxide 30.2 mmol/L (21.0-32.0) 03/18/24 12:08 BUN 14 mg/dL (7-18) 03/18/24 12:08 Creatinine 1.1 mg/dL (0.70-1.30) 03/18/24 12:08 Est GFR (CKD-EPI 2020) 71.77 (mL/min/1.73m2) 03/18/24 12:08 Calcium 9.3 mg/dL (8.5-10.1) 03/18/24 12:08 Albumin 3.8 g/dL (3.4-5.0) 03/18/24 12:08 Glucose 113 mg/dL (74-106) H 03/18/24 12:08 Liver Function Panel: Alanine Aminotransferase (ALT/SGPT) 61 U/L (16-63) 03/18/24 12: 08 Aspartate Amino Transf (AST/SGOT) 42 U/L (15-37) H 03/18/24 12: 08 Coagulation Panel: INR International Normalized Ratio 1.2 (0.9-1.1) H 03/18/24 12 :08 Prothrombin Time 11.6 sec (9.1-11.1) H 03/18/24 12:08 Cardiac Panel: No Data to Display Arterial Blood Gas: No Data to Display Venous Blood Gas: No Data to Display Pancreas Panel: No Data to Display Thyroid Panel: No Data to Display Infectious Disease: No Data to Display Blood Cultures: No Data to Display Toxicology Panel: No Data to Display Anesthesia Assessment and Plan Anesthesia History Personal History: No History of Anesthesia Complications Family History: No Family History of Anesthesia Complications Exercise Tolerance Exercise Tolerance: Metabolic Equivalents>4 Pertinent Negatives Pertinent Negatives: No Major Cardiovascular Symptoms or Complaints and No Major Pulmonary Symptoms or Complaints Cardiac & Pulmonary Exam Cardiac Exam: Normal S1/S2 Heart Sounds Pulmonary Exam: Clear Bilateral Breath Sounds Implantable Cardiac Device Does patient have a Pacemaker or an ICD?: No Airway Exam Known Difficult Airway: No Mallampati Class: 2 Mouth Opening: Normal (> 3cm) Thyromental Distance: Greater than 3 cm Facial Hair: Full Vega Neck Range of Motion: Full ROM Neck Circumference: Normal Teeth Condition: Generalized Poor Dentition ASA Classification ASA Score: ASA 2 Emergency Case?: No NPO Status NPO Status: NPO Clears >2 hours, Solids >8 hours Anesthesia Plan Resuscitation Status: Full Code Anesthesia Technique: General Anesthesia Airway Planned: Endotracheal Tube Monitors Used: Standard Monitors and SedLine
--- NOTE | 2024-03-30 08:19 | VOCCOR_PTH ---
PATIENT: Steven Norris LOC: [facility] U#:[id number] AGE/SX: 73/M ROOM: RE03/30/[address]: Dc Jordan MD : 1950 BED: DIS: 03/30/2024 SPEC #: [id number] RECD: 03/30/24 12:47 STATUS: JOSE FRANCISCO REQ #: [id number] ROBERTO: 03/30/24 08:[address]: Dc Jordan DEPT: Surgical Specimen RECD BY: Demetria Oconnell ENTERED: 03/30/24 12:48 SP TYPE: VOCCOR OTHR DR: Flaco Gerber DO Tissues: 1 - VOCAL CORD Procedures: GROSS AND MICRO LEVEL 4 Comments: [id number]
--- NOTE | 2024-03-30 08:49 | W.ANESPOSTOP ---
Postoperative Evaluation Date, Time and Location Date Performed: 03/30/24 Time Performed: 08:49 Patient Location: PACU Vital Signs Most Recent Imported Vital Signs: Most Recent Vital Signs Temp Pulse Resp BP Pulse Ox 36.5 C 67 19 104/55 L 98 03/30/24 08:44 03/30/24 08:46 03/30/24 08:46 03/30/24 08:46 03/30/24 08:46 Pain Score Most Recent Pain Score: Most Recent Pain Score Pain Level 0 03/30/24 08:44 Assessment Mental Status: Awake (Alert & Oriented to Patient Baseline) Airway and Respiratory Function: Patent airway with normal (patient baseline) respiratory exam Cardiovascular Function: Hemodynamically Stable Hydration Status: Adequately Hydrated Nausea & Vomiting: No Nausea or Vomiting Pain: Pt. Denies Any Pain Peripheral Nerve Block: Patient did not receive a nerve block
== END 2024-03-30 10:23 | disposition home or self-care (01) ==
PROVIDERS: PCP Family Medicine; Visit Provider Otolaryngology
PROC: 0CJS8ZZ Inspection of Larynx, Via Natural or Artificial Opening Endoscopic (ICD-10-PCS; CPT 31575; principal; 2024-03-30 07:30)
DX: J38.3 Other diseases of vocal cords (principal); R49.0 Dysphonia; R13.10 Dysphagia, unspecified; K21.9 Gastro-esophageal reflux disease without esophagitis; Z87.891 Personal history of nicotine dependence
CPT/HCPCS: 31536; 88305; J1100; J1805; J2001; J2250; J2405; J2704

== ENCOUNTER 2025-03-05 00:47 | Outpatient (CLI) | payer MEDICARE, BC, SELFPAY ==
--- NOTE | 2025-03-05 07:15 | DI.CTLCSR_ITS ---
Exam(s) CT CHEST LUNG CANCER SCREEN EXAM: CT CHEST LUNG CANCER SCREEN CLINICAL HISTORY: Screening for lung cancer,former tobacco use,z87.891 TECHNIQUE: Imaging Protocol: Axial computed tomography images with coronal and sagittal reformatted images were created and reviewed. Lung Computer Aided Detection (CAD) was utilized. COMPARISON: CT CT CHEST LUNG CANCER SCREEN from 03/04/2024 FINDINGS: Tracheobronchial tree: Patent where visualized. No bronchiectasis. Pulmonary parenchyma: No consolidation or dominant measurable mass. No architectural distortion. There are stable mild interstitial changes seen in the periphery of the lungs and predominantly in the upper lobes. No focal consolidating infiltrates are present. Lung Nodules: There are no suspicious pulmonary nodules present. Mediastinum and Dulce: No dominant adenopathy or fluid collection. The esophagus is unremarkable. Thyroid gland: Unremarkable. Lymph nodes: Unremarkable. Pleura: No effusion or pneumothorax. Heart: The heart is not dilated. Three vessel coronary artery calcification is present. No pericardial effusion. Aorta: Thoracic aorta non-dilated.Atherosclerotic calcification is present. Upper abdomen: Unremarkable. Soft Tissues: Unremarkable. Bones: Within normal limits. IMPRESSION: No suspicious pulmonary nodules are present. Lung RADS Cat 1 - Negative: No nodules and definitely benign nodules Lung-RADS 1.0 CATEGORIES: Category 0 - Prior chest CT exam(s) being located for comparison. Category 1 - Annual screening in 12 months. No nodules or definitely benign nodules. Category 2 - Annual screening in 12 months. Benign appearance. Nodules with low likelihood of becoming active cancer. Category 3 - 6-month follow-up. Probably benign. Short-term follow-up suggested. Nodules with low likelihood of becoming active cancer. Category 4A - 3-month follow-up and CT/PET if >8 mm in size. Suspicious finding. Findings which require additional testing. Category 4B - Findings which require additional testing and tissue sampling. Suspicious finding. Category 4X - Category 3 or 4 nodules with additional features or imaging findings that increases the suspicion of malignancy. Modifier S- Potentially clinically significant finding. (Non lung cancer) RADIATION DOSE DELIVERED: 95.23mGy.cm Total DLP 95.23mGy.cmTotal DLP DATA REPOSITORY: All CT scans at this facility are submitted to the National Radiology Data Registry (NRDR) Dose Index Registry (DIR) with the [employer] (ACR). RADIATION OPTIMIZATION: All CT scans at this facility use at least one of these dose optimization techniques: automated exposure control; mA and/or kV adjustment per patient size (includes targeted exams where dose is matched to clinical indication); or iterative reconstruction.
== END 2025-03-05 01:07 ==
LOC: DI 00:47
PROVIDERS: PCP Family Medicine; Visit Provider Family Medicine
DX: Z12.2 Encounter for screening for malignant neoplasm of respiratory organs (principal); Z87.891 Personal history of nicotine dependence
CPT/HCPCS: 71271